=== PATIENT | female | born 2000 | race Hispanic/Latino ===

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

== ENCOUNTER 2019-04-09 23:35 | Emergency (ER) | payer MEDICAID ==
[2019-04-10 00:13] LABS: APPEARANCE,URINE Clear (CLEAR); BILIRUBIN,URINE Negative (NEGATIVE); COLOR,URINE Yellow (YELLOW); GLUCOSE, URINE (UA) Negative (NEGATIVE); KETONES,URINE Negative (NEGATIVE); LEUKOCYTE ESTERASE ,URINE Negative (NEGATIVE); NITRATE,URINE Negative (NEGATIVE); OCCULT BLOOD,URINE Negative (NEGATIVE); PH,URINE 6.5 (5.0-8.0); PROTEIN,URINE POS 1+ mg/dL (NEGATIVE)
[2019-04-10 00:14] LABS: BASOPHILS % (AUTO) 0.4 % (0.0-5.0); EOSINOPHILS % (AUTO) 0.2 % (0.0-8.0); HCG,QUAL RESULT POSITIVE (NEGATIVE); HEMATOCRIT 38.4 % (36-48); LYMPHOCYTES % (AUTO) 8.4 % (21.0-51.0); MEAN CORPUSCULAR HEMOGLOBIN 29.2 pg (27.0-33.0); MEAN CORPUSCULAR HGB CONC 33.7 g/dL (32.0-36.0); MEAN CORPUSCULAR VOLUME 86.6 fL (80-100); MONOCYTES % (AUTO) 4.3 % (3.0-13.0); NEUTROPHILS % (AUTO) 86.7 % (40.0-77.0); PLATELET COUNT (AUTO) 289 K/uL (130-400); RED BLOOD CELL COUNT(AUTO) 4.43 MIL/uL (4.00-5.50); RED CELL DISTRIBUTION WIDTH 14.5 % (11.0-15.5); WHITE BLOOD COUNT (AUTO) 18.8 K/uL (4.8-10.8)
[2019-04-10] MEDS ORDERED: SODIUM CHLORIDE 0.9% 1000ML 1,000 ML IV ONE (00:18)
[2019-04-10] MEDS ORDERED: ONDANSETRON HCL 4 MG/2 ML VIAL ONE (00:18)
[2019-04-10 00:25] LABS: BACTERIA,URINE Rare /HPF (None Seen); MUCUS,URINE Rare LPF (None Seen); RBC,URINE None Seen /HPF (0-1); SQUAMOUS EPITHELIAL CELL,UR 0-2 /HPF (0-2); WBC,URINE 0-1 /HPF (0-1)
[2019-04-10 00:26] LABS: CREATININE 0.8 mg/dL (0.5-1.5); POTASSIUM 4.1 mmol/L (3.5-5.1)
[2019-04-10 00:30] LABS: ALBUMIN 4.1 g/dL (3.5-5.0); BILIRUBIN,TOTAL 0.4 mg/dL (0.2-1.0); TOTAL PROTEIN, SERUM 8.2 g/dL (6.0-8.3)
== END 2019-04-10 03:42 | disposition home or self-care (01) ==
LOC: EDH 23:35
DX: O21.8 Other vomiting complicating pregnancy (principal); O26.891 Other specified pregnancy related conditions, first trimester; D72.829 Elevated white blood cell count, unspecified; R10.10 Upper abdominal pain, unspecified; O99.511 Diseases of the respiratory system complicating pregnancy, first trimester; J45.909 Unspecified asthma, uncomplicated; Z3A.01 Less than 8 weeks gestation of pregnancy
CPT/HCPCS: 36415; 76705; 80053; 81001; 81025; 82150; 82550; 83690; 84484; 84702; 85025; 86900; 86901; 93005; 96361; 96374; 99285; J2405; J7030

== ENCOUNTER 2019-07-13 12:33 | Emergency (ER) | payer MEDICAID ==
[2019-07-13] MEDS ORDERED: ACETAMINOPHEN EXTRA STRENGTH 500 MG TABLET ONE (14:21)
[2019-07-13 15:23] LABS: RAPID GROUP A STREP NEGATIVE (NEGATIVE)
== END 2019-07-13 16:18 | disposition home or self-care (01) ==
LOC: EDH 12:33
DX: O9A.212 Injury, poisoning and certain other consequences of external causes complicating pregnancy, second trimester (principal); O98.512 Other viral diseases complicating pregnancy, second trimester; T23.011A Burn of unspecified degree of right thumb (nail), initial encounter; T31.0 Burns involving less than 10% of body surface; J10.1 Influenza due to other identified influenza virus with other respiratory manifestations; Z87.891 Personal history of nicotine dependence; Z3A.18 18 weeks gestation of pregnancy; X12.XXXA Contact with other hot fluids, initial encounter; Y93.89 Activity, other specified; Y92.89 Other specified places as the place of occurrence of the external cause; Y99.8 Other external cause status
CPT/HCPCS: 87804; 87880

== ENCOUNTER 2019-12-09 10:05 | Inpatient (IN) | payer MEDICAID ==
[~2019-12-09] VITALS: Ht 167.6 cm; Wt 95.3 kg
[2019-12-12] MEDS ORDERED: LACTATED RINGERS 1000ML 1,000 ML IV PRN (10:09)
[2019-12-12] MEDS ORDERED: LACTATED RINGERS 500 ML 500 ML IV PRN (10:15)
[2019-12-12] MEDS ORDERED: OXYTOCIN-LR 20 UNITS/1000 ML 1,000 ML IV SCH ×2 (10:15→11:15)
[2019-12-12] MEDS ORDERED: EPHEDRINE SULFATE 50 MG/ML AMPULE IVP PRN (10:15)
[2019-12-12] MEDS ORDERED: ROPIVACAINE 0.2% 100ML VIAL 100 ML EP SCH (10:15)
[2019-12-12] MEDS ORDERED: NALOXONE HCL 0.4 MG/1 ML ML IV PRN (10:15)
[2019-12-12] MEDS ORDERED: OXYTOCIN 10 USP UNITS/ML 20 UNIT in LACTATED RINGERS 1000ML 1,000 ML IV SCH (10:15)
[2019-12-12] MEDS ORDERED: LIDOCAINE HCL 1% 20 ML VIAL INJ PRN (10:15)
[2019-12-12 10:33] LABS: HEMATOCRIT 32.3 % (36-48); MEAN CORPUSCULAR HEMOGLOBIN 28.8 pg (27.0-33.0); MEAN CORPUSCULAR HGB CONC 33.4 g/dL (32.0-36.0); MEAN CORPUSCULAR VOLUME 86.1 fL (80-100); RED BLOOD CELL COUNT(AUTO) 3.75 MIL/uL (4.00-5.50); RED CELL DISTRIBUTION WIDTH 15.2 % (11.0-15.5); WHITE BLOOD COUNT (AUTO) 9.6 K/uL (4.8-10.8)
[2019-12-12 10:41] LABS: APPEARANCE,URINE Clear (CLEAR); BILIRUBIN,URINE Negative (NEGATIVE); COLOR,URINE Yellow (YELLOW); GLUCOSE, URINE (UA) Negative (NEGATIVE); KETONES,URINE Negative (NEGATIVE); LEUKOCYTE ESTERASE ,URINE Negative (NEGATIVE); NITRATE,URINE Negative (NEGATIVE); OCCULT BLOOD,URINE Negative (NEGATIVE); PROTEIN,URINE POS 2+ mg/dL (NEGATIVE)
[2019-12-12 10:58] LABS: BACTERIA,URINE Rare /HPF (None Seen); RBC,URINE 0-1 /HPF (0-1); SQUAMOUS EPITHELIAL CELL,UR Rare /HPF (0-2); WBC,URINE 0-1 /HPF (0-1)
[2019-12-12] MEDS ORDERED: BUTORPHANOL TARTRATE 2 MG/ML IVP PRN (12:00)
[2019-12-12] MEDS ORDERED: WITCH HAZEL 1 PAD TP PRN (14:00)
[2019-12-12] MEDS ORDERED: DIPH,PERTUSS(ACELL),TET VAC/PF 0.5 ML VIAL IM PRN (14:00)
[2019-12-12] MEDS ORDERED: BENZOCAINE/LANOLIN/ALOE VERA 60 ML AEROSOL TP PRN (14:00)
[2019-12-12] MEDS ORDERED: ACETAMINOPHEN-CODEINE 300/30MG TAB PO PRN (14:00)
[2019-12-12] MEDS ORDERED: MEASLES/MUMPS/RUBELLA VACCINE, LIVE 0.5 ML/VIAL SQ PRN (14:00)
[2019-12-12] MEDS ORDERED: LANOLIN 30GM OINTMENT TP PRN (14:00)
[2019-12-12 15:40] VITALS: BP 136/70
[2019-12-12] MEDS ORDERED: PNV1TABL17 PO (18:19)
[2019-12-12] MEDS: ACETAMINOPHEN 325 MG TAB PO PRN (18:54)
[2019-12-12 20:27] VITALS: BP 121/73
[2019-12-12] MEDS: DOCUSATE SODIUM 100 MG CAP PO SCH (21:53)
[2019-12-12] MEDS: IBUPROFEN 600 MG TABLET PO PRN (21:53)
[2019-12-12 23:38] VITALS: BP 112/57
[2019-12-13 04:06] VITALS: BP 114/59
[2019-12-13] MEDS: IBUPROFEN 600 MG TABLET PO PRN (04:32)
[2019-12-13 07:39] VITALS: BP 111/56
[2019-12-13] MEDS: DOCUSATE SODIUM 100 MG CAP PO SCH (08:55)
[2019-12-13] MEDS: ACETAMINOPHEN 325 MG TAB PO PRN (08:56)
[2019-12-13 10:12] LABS: HEPATITIS Bs ANTIGEN SCREEN P Negative (Negative)
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
[2019-12-13 11:24] VITALS: BP 129/81
--- NOTE | 2019-12-13 13:10 | NUR ---
DISCHARGE INSTRUCTIONS READ AND EXPLAINED TO PATIENT. QUESTIONS INVITED AND ANSWERED. RX FOR MOTRIN 800MG HANDED TO PATIENT.
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
== END 2019-12-13 14:50 | disposition home or self-care (01) | DRG 560 ==
LOC: PREOBSVTOIN 10:05 → LDH 12-12 10:05 → WSH 12-12 16:13
PROVIDERS: ADMIT Obstetrics & Gynecology; ATTEND Obstetrics & Gynecology
PROC: 10E0XZZ Delivery of Products of Conception, External Approach (ICD-10-PCS; principal; 2019-12-12)
PROC: 0KQM0ZZ Repair Perineum Muscle, Open Approach (ICD-10-PCS; 2019-12-12)
PROC: 3E0234Z Introduction of Serum, Toxoid and Vaccine into Muscle, Percutaneous Approach (ICD-10-PCS; 2019-12-12)
DX: O69.81X0 Labor and delivery complicated by cord around neck, without compression, not applicable or unspecified (principal); O24.429 Gestational diabetes mellitus in childbirth, unspecified control; O70.1 Second degree perineal laceration during delivery; Z37.0 Single live birth; Z3A.40 40 weeks gestation of pregnancy; Z23 Encounter for immunization
CPT/HCPCS: 36415; 81001; 82948; 85027; 86592; 86850; 86900; 86901; 87340; A4351; G0378; J2590